=== PATIENT | male | born 1980 | race Caucasian/White ===

== ENCOUNTER 2020-12-05 19:05 | Emergency (ER) | payer BC, SELFPAY ==
--- NOTE | 2020-12-05 19:08 | ED.BACK ---
HPI - Back Pain/Injury General Chief Complaint: Back Pain/Injury Stated Complaint: Back Pain Time Seen by Provider: 12/05/20 19:08 Source: patient and RN notes reviewed History of Present Illness HPI Narrative: Patient is a 40-year-old male who presents the urgent care with complaints of low back pain mostly to the left side. Patient states that on 24 November he was pulling on a rope which he knows because the muscle strain in the back. Patient states that since then he has been taking Tylenol and ibuprofen. States that the pain did improve except he was doing labor at work which exacerbated the pain. Patient states it increases with any movement or bending at the waist. States that he does have some chronic back pain and has had issues in the past needing muscle relaxers. Patient denies of any issues with bowel or bladder. Denies of any fall or blunt force trauma to the back. No other acute complaints. No acute distress noted. Patient aware of the plan of care. Some parts of this dictation were generated by voice recognition software and may contain typographical and/or grammatical inaccuracies. Related Data Home Medications Medication Instructions Recorded Confirmed bupropion HCl [Wellbutrin] 75 mg PO BID 12/05/20 12/05/20 dulaglutide [Trulicity] 1.5 mg SUBCUT WEEKLY 12/05/20 12/05/20 glipizide 10 mg PO BID 12/05/20 12/05/20 lisinopril 5 mg PO DAILY 12/05/20 12/05/20 Allergies Allergy/AdvReac Type Severity Reaction Status Date / Time No Known Allergies Allergy Verified 12/05/20 19:23 Review of Systems Review of Systems: Narrative: CONSTITUTIONAL: Denies fever, chills, or sweats. EYES: Denies visual changes, redness, or discharge. ENT: Denies rhinorrhea, congestion, sore throat, or otalgia. CARDIOVASCULAR: Denies chest pain, palpitations, or edema. RESPIRATORY: Denies cough or dyspnea. GASTROINTESTINAL: Denies abdominal pain, nausea, vomiting, or diarrhea. GENITOURINARY: Denies dysuria or hematuria. SKIN: Denies rash or itching. MUSCULOSKELETAL: Reports of low back pain mainly on the left side NEUROLOGIC: Denies headache, numbness, or weakness. All other systems reviewed are negative, except as documented in HPI. PMFSH Comments At the time of my signature, I reviewed and agree with the nursing past medical, surgical, social, and family history. There is no relevant family history pertinent to the patient complaint. Exam Narrative: Exam Narrative: GENERAL: This is a well-nourished, well-developed patient, in no apparent distress. HEAD: normocephalic, atraumatic. EYES: PERRL. Sclera clear/white. Vision is grossly intact. EARS: External ears normal NOSE: External nose normal with no obvious nasal discharge, nares without redness, no rhinorrhea. THROAT: Mucous membranes moist NECK: Neck supple CARDIOVASCULAR: Regular rate and rhythm without murmurs, gallops, or rubs. RESPIRATORY: Clear to auscultation. Breath sounds equal bilaterally. No wheezes, rales, or rhonchi. SKIN: warm, intact with no suspicious lesions or rash, good texture and turgor. NEURO: awake, alert, and oriented to person, place and time. There were no obvious focal neurologic abnormalities. EXTREMITIES: No clubbing, cyanosis, or edema. BACK: Mild left lumbar tenderness with positive left SLE Course Vital Signs Vital signs: Vital Signs Temperature 97.8 F 12/05/20 19:17 Pulse Rate 100 12/05/20 19:17 Respiratory Rate 18 12/05/20 19:17 Blood Pressure 151/83 H 12/05/20 19:17 Pulse Oximetry 99 12/05/20 19:17 Temperature 97.8 F 12/05/20 19:17 Pulse Rate 100 12/05/20 19:17 Respiratory Rate 18 12/05/20 19:17 Blood Pressure 151/83 H 12/05/20 19:17 Pulse Oximetry 99 12/05/20 19:17 Reviewed-patient is informed that they may have pre-hypertension or hypertension based on a blood pressure reading in the department. I recommend the patient call the primary care provider listed on their discharge instructions or a physician
[2020-12-05 19:17] VITALS: BP 151/83; PULSE 100; RESP 18; TEMP 36.6; O2SAT 99
== END 2020-12-05 19:34 | disposition home or self-care (01) ==
PROVIDERS: Emergency Provider Nurse Practitioner Family; PCP Family Medicine
DX: S39.012A Strain of muscle, fascia and tendon of lower back, initial encounter (principal); X50.9XXA Other and unspecified overexertion or strenuous movements or postures, initial encounter; M54.32 Sciatica, left side; I10 Essential (primary) hypertension; E11.9 Type 2 diabetes mellitus without complications; F41.9 Anxiety disorder, unspecified; F32.9 Major depressive disorder, single episode, unspecified
CPT/HCPCS: 99213; G0463